=== PATIENT | female | born 2005 | race Two or more races ===

== ENCOUNTER 2024-06-14 19:27 | Emergency (ER) | payer MEDICAID, SELFPAY ==
[2024-06-14 19:36] VITALS: BP 145/93; PULSE 100; RESP 18; TEMP 37.3; O2SAT 100
--- NOTE | 2024-06-14 19:41 | EDNOTE_ITS ---
<Statement entered by Shazia Jerry MD - 06/15/24 04:07> As co-signing physician, I was present and available for consult prn. I concur with the plan and care as documented by the midlevel provider. ED Allergic Reaction RME/HPI General Chief complaint: Allergic Reaction Stated complaint: ALLERGIC REACTION Time Seen by Provider: 06/14/24 19:40 Arrival date/time: 06/14/24 19:27 19F with no significant PMH presents to ED with several hours of facial swelling and generalized itching. Patient denies new foods, meds, hygiene products, throat swelling, and SOB. Limitations: no limitations Related Data Previous Rx's ?Medication ?Instructions ?Recorded prednisone 50 mg tablet 50 mg PO QDAY 5 days #5 tabs 06/14/24 Allergies Allergy/AdvReac Type Severity Reaction Status Date / Time No Known Allergies Allergy Unknown Uncoded 09/04/08 16:11 Review of Systems Review of Systems Systems Reviewed: All systems reviewed, normal except as documented Constitutional Constitutional: Reports system reviewed and no additional complaints, except as documented, Denies fever(s) and Denies headache(s) ENT Ears, Nose, Mouth, and Throat: Denies disequilibrium and Denies headache(s) Cardiovascular Cardiovascular: Reports system reviewed and no additional complaints, except as documented, Denies chest pain and Denies dyspnea Respiratory Respiratory: Reports system reviewed and no additional complaints, except as documented, Denies cough and Denies dyspnea Gastrointestinal Gastrointestinal: Reports system reviewed and no additional complaints, except as documented, Denies abdominal pain, Denies nausea and Denies vomiting Integumentary/Breasts Skin/Breast: Reports as per HPI, Reports pruritus and Reports rash Neurologic Neurologic: Reports system reviewed and no additional complaints, except as documented, Denies confusion, Denies disequilibrium and Denies headache(s) Psychiatric Psychiatric: Denies confusion Past Medical History Social History SMOKING STATUS: Never smoker ED Exam General Limitations: Present no limitations General appearance: Present alert and in no apparent distress Head Head exam: Present atraumatic Eye Eye exam: Present normal appearance, PERRL and EOMI ENT ENT exam: Present normal exam, normal oropharynx and mucous membranes moist Neck Neck exam: Present normal inspection, full ROM and trachea midline Chest Chest inspection: Present normal inspection and symmetric chest wall rise Respiratory Respiratory exam: Present normal lung sounds bilaterally Cardiovascular Cardiovascular exam: Present regular rate, normal rhythm and normal heart sounds Abdominal Exam Abdominal exam: Present soft and normal bowel sounds Extremities Exam Extremities exam: Present normal inspection and full ROM Back Exam Back exam: Present normal inspection and full ROM Neurological Exam Neurological exam: Present alert, oriented X3 and CN II-XII intact Psychiatric Psychiatric exam: Present normal affect and normal mood Skin Skin exam: Present warm, dry, intact, normal color and rash Course Quality Measures none Orders Category Date Time Status Dexamethasone Inj [Decadron Inj] Med 06/14/24 19:40 Discontinued 20 mg PO X1 ONE DiphenhydrAMINE [Benadryl] Med 06/14/24 19:40 Discontinued 50 mg PO X1 ONE Famotidine [Pepcid] Med 06/14/24 19:40 Discontinued 40 mg PO X1 ONE Vital Signs Vital signs: Vital Signs Temperature 99.2 F 06/14/24 19:36 Pulse Rate 100 06/14/24 19:36 Respiratory Rate 18 06/14/24 19:36 Blood Pressure 145/93 H 06/14/24 19:36 Pulse Oximetry (%) 100 06/14/24 19:36 Oxygen Delivery Method Room Air 06/14/24 19:36 O2 at 100% on RA and WNLs Allergic Reaction MDM Narrative MDM Narrative:: 19F with no significant PMH presents to ED with several hours of facial swelling and generalized itching. Patient denies new foods, meds, hygiene products, throat swelling, and SOB. Physical exam reveals generalized urticarial rash on face and upper torso. Clear ENT and lungs. Patient is afebrile, calm, and alert. Symptoms relieved with meds. Patient data External records reviewed:: None Clinical information provided by:: patient Social determinants that could affect healthcare access:: none Patient has the following chronic illnesses:: none How is presenting disease/condition affected by chronic disease/condition?: no chronic disease Evaluation data The following diagnostics were reviewed and interpreted by me:: other (specify) (none) Lab and/or radiology exams considered but not ordered:: not ordered Interpretation Summary: n/a Medications / Prescriptions Medications or Prescriptions considered but not ordered:: ordered Medication administrations:: Medication Administration History Discontinued Medications Dexamethasone Sodium Phosphate (Dexamethasone Sod Phos Inj 10 Mg/Ml Vial) 20 mg PO X1 ONE Stop: 06/14/24 19:41 Last Admin: 06/14/24 19:47 Dose: 20 mg Documented By: Diphenhydramine HCl (Diphenhydramine 25 Mg Capsule) 50 mg PO X1 ONE Stop: 06/14/24 19:41 Last Admin: 06/14/24 19:45 Dose: 50 mg Documented By: Famotidine (Famotidine 20 Mg Tablet) 40 mg PO X1 ONE Stop: 06/14/24 19:41 Last Admin: 06/14/24 19:45 Dose: 40 mg Documented By: above Consultations Consultation(s) initiated? (list below): No Diagnosis Differential Diagnosis allergic reaction: anaphylaxis, allergic reaction, angioedema, contact dermatitis, adverse reaction to drug, viral enanthem and urticaria Most likely diagnosis given after review of the tests above:: allergic reaction Admission Indicated Admission indicated?: not indicated Admission Request Was there a request for admission?: No Disposition Plan Disposition Plan: Discharge Discharge Attestation Discharge Attestation: The patient and all family members were given an opportunity to ask questions and understood the discharge instructions. Discharge instructions specifically effects, indications for sooner follow up or return to the emergency department, and the expected course of current diagnosis. Patient condition: Stable Discharge Plan Plan Patient Disposition: HOME (Self Care) Disposition Comment: Stable Prescriptions/Referrals Prescriptions/Med Rec: New prednisone 50 mg tablet 50 mg PO QDAY 5 Days Qty: 5 0RF Referrals: Sumanth Valerio MD [Primary Care Provider] - In 1 week Problem List Clinical Impression: Allergic reaction Patient/Caregiver Discharge Instructions Additional Instructions: Please follow-up with PCP within 24-48 hours and return immediately if symptoms worsen. Take OTC antihistamine as needed until symptoms resolve. Finish entire steroid course. Print Language: Thai Stand Alone Forms: Patient Portal Info Letter NIRAJ/BETTY Supervising Physician ERAN Supervising Physician: Dr. Jerry
[2024-06-14] MEDS: DiphenhydrAMINE 25 MG CAPSULE 50 MG PO (19:45)
[2024-06-14] MEDS: FAMOTIDINE 20 MG TABLET 40 MG PO (19:45)
[2024-06-14] MEDS: DEXAMETHASONE SOD PHOS INJ 10 MG/ML VIAL 20 MG PO (19:47)
== END 2024-06-14 21:55 | disposition home or self-care (01) ==
PROVIDERS: Emergency Provider Emergency Medicine; PCP Family Medicine
DX: L50.0 Allergic urticaria (principal)
CPT/HCPCS: 99282; J1100; A9270